=== PATIENT | female | born 1955 | race Caucasian/White ===

== ENCOUNTER → 2018-07-27 09:38 | Outpatient (CLI) | payer OTHER, SELFPAY ==
--- NOTE | 2018-07-27 09:42 | BI_ITS ---
MAMMOGRAPHY - BILATERAL SCREENING REASON FOR EXAM: Female, 63 years old. Routine annual screening examination. PERTINENT HISTORY: Aunt with breast cancer. Remote right stereotactic breast biopsy. Residual right breast discharge. TECHNIQUE: Digital bilateral breast hortensia (3D mammographic acquisition) in the CC and MLO projections. 2-D mediolateral oblique (MLO) and craniocaudad (CC) views of both breasts were obtained. CAD: Full Field Digital Mammography with Computer Added Detection was performed. COMPARISON: Comparison is made with prior examination dated June 20, 2017. FINDINGS: Breast Composition: The breasts are heterogeneously dense, which may obscure small masses. There are no dominant masses or suspicious calcifications. No other significant abnormalities are identified. There has been no significant change since the prior study. BI/SCREENING MAMM (CAD), BILAT IMPRESSION: Stable bilateral screening mammogram. Yearly follow-up mammogram recommended. (A) ASSESSMENT CATEGORY: BIRADS Category 1: Negative. A letter regarding these results will be sent to the patient by the facility within 30 days. Approximately 10% of breast cancers are not detected by mammography. A normal mammogram should not delay biopsy of a clinically suspicious abnormality. [id number] Electronically Signed: Milton Oseguera MD at 11:27 EST Tel [phone], Service support ,
== END ==
PROVIDERS: Family Provider Internal Medicine; PCP Internal Medicine; Referring Provider Obstetrics & Gynecology; Visit Provider Obstetrics & Gynecology
DX: Z12.31 Encounter for screening mammogram for malignant neoplasm of breast (principal)
CPT/HCPCS: 77063; 77067

== ENCOUNTER → 2019-08-06 12:40 | Outpatient (CLI) | payer OTHER, SELFPAY ==
--- NOTE | 2019-08-06 12:42 | BI_ITS ---
MAMMOGRAPHY - BILATERAL SCREENING REASON FOR EXAM: Female, 64 years old. Routine annual screening examination. PERTINENT HISTORY: Aunt with breast cancer. TECHNIQUE: Digital bilateral breast madiha (3D mammographic acquisition) in the CC and MLO projections. 2-D mediolateral oblique (MLO) and craniocaudad (CC) views of both breasts were obtained. CAD: Full Field Digital Mammography with Computer Added Detection was performed. COMPARISON: Comparison is made with prior examination dated July 27, 2018 and August 03, 2016. FINDINGS: Breast Composition: The breasts are heterogeneously dense, which may obscure small masses. There are no dominant masses or suspicious calcifications. A tissue clip marker is seen in the deep slightly medial aspect of the right breast. No other significant abnormalities are identified. There has been no significant change since the prior study. BI/SCREEN MAMM (CAD) W/MADIHA BILAT IMPRESSION: Stable bilateral screening mammogram. Yearly follow-up mammogram recommended. (A) ASSESSMENT CATEGORY: BIRADS Category 2: Benign. A letter regarding these results will be sent to the patient by the facility within 30 days. Approximately 10% of breast cancers are not detected by mammography. A normal mammogram should not delay biopsy of a clinically suspicious abnormality. [id number] Electronically Signed: Milton Oseguera, at 14:28 EST , Service support ,
--- NOTE | 2019-08-06 13:10 | BD_ITS ---
STUDY: DUAL ENERGY X-RAY ABSORPTIOMETRY / DXA REASON FOR EXAM: Female, 64 years old. The patient is postmenopausal. No loss of height. TECHNIQUE: Bone Mineral Density (BMD) measurements of lumbar spine and bilateral hips were obtained. COMPARISON: Comparison is made with prior examination dated August 03, 2016. FINDINGS: Lumbar Spine (L1-L4): g/cm2 (1.142) / T-score (-0.3) / Z-score (1.3) Findings are suggestive of normal bone density with a low fracture risk. Left Femur Total: g/cm2 (0.859) / T-score (-1.2) / Z-score (0.1) Left Femoral Neck: g/cm2 (0.849) / T-score (-1.4) / Z-score (0.2) Right Femur Total: g/cm2 (0.865) / T-score (-1.1) / Z-score (0.1) Right Femoral Neck: g/cm2 (0.729) / T-score (-2.2) / Z-score (-0.7) The T-Scores on the most recent prior examination were: Lumbar Spine (L1-L4): There has been improvement of bone density since the previous examination. Left Femur Total: which represents a worsening of 4.4%. Right Femur Total: which represents a worsening of 2.1%. BD/Dexa Bone Density Study IMPRESSION: The patient is considered osteopenic as outlined below according to World Asif Organization (WHO) criteria with a moderate fracture risk. There has been worsening of bone density since the previous examination. Reference Information: The T-score is the number of standard deviations above or below the standard which is normal for young adults at their peak bone mineral density. The World Health Organization (WHO) interprets the T-scores as follows: Above -1 Normal bone density Between -1 and -2.5 Osteopenia Equal to / or below -2.5 Osteoporosis As a practical clinical guideline, osteopenia may be graded as follows: Mild -1 through -1.5 Moderate -1.6 through -2.0 Severe -2.1 through -2.4 The Z-score is the number of standard deviations above or below age-matched controls. A Z-score of less than -1.5 would be considered abnormal. References: 1. NIH Osteoporosis and Related Bone Diseases http://www.osteo.org 2. International Society for Clinical Densitometry http://www.iscd.org 3. National Osteoporosis Foundation http://www.nof.org Electronically Signed: Milton Oseguera, at 11:06 EST , Service support ,
== END ==
PROVIDERS: Family Provider Internal Medicine; PCP Internal Medicine; Referring Provider Obstetrics & Gynecology; Visit Provider Obstetrics & Gynecology
DX: Z12.31 Encounter for screening mammogram for malignant neoplasm of breast (principal); Z80.3 Family history of malignant neoplasm of breast; Z78.0 Asymptomatic menopausal state
CPT/HCPCS: 77063; 77067; 77080

== ENCOUNTER → 2020-08-31 07:55 | Outpatient (CLI) | payer OTHER, SELFPAY ==
--- NOTE | 2020-08-31 07:57 | BI_ITS ---
MAMMOGRAPHY - BILATERAL SCREENING REASON FOR EXAM: Female, 65 years old. Routine annual screening examination. PERTINENT HISTORY: Aunt with breast cancer. Occasional bilateral nipple tenderness. Prior right stereotactic breast biopsy. TECHNIQUE: Digital bilateral breast madiha (3D mammographic acquisition) in the CC and MLO projections. 2-D mediolateral oblique (MLO) and craniocaudad (CC) views of both breasts were obtained. CAD: Full Field Digital Mammography with Computer Added Detection was performed. COMPARISON: Comparison is made with prior study dated 08/06/2019 and 07/27/2018. FINDINGS: Breast Composition: The breasts are heterogeneously dense, which may obscure small masses. There are no dominant masses or suspicious calcifications. A tissue clip marker is once again seen in the deep slightly medial aspect of the No other significant abnormalities are identified. There has been no significant change since the prior study. BI/SCREEN MAMM (CAD) W/MADIHA BILAT IMPRESSION: Stable bilateral screening mammogram. Yearly follow-up mammogram recommended. (A) ASSESSMENT CATEGORY: BIRADS Category 2: Benign. A letter regarding these results will be sent to the patient by the facility within 30 days. Approximately 10% of breast cancers are not detected by mammography. A normal mammogram should not delay biopsy of a clinically suspicious abnormality. [id number] Electronically Signed: Milton Oseguera, at 10:17 EST , Service support ,
== END ==
PROVIDERS: PCP Internal Medicine; Referring Provider Student in an Organized Health Care Education/Training Program; Visit Provider Student in an Organized Health Care Education/Training Program
DX: Z12.31 Encounter for screening mammogram for malignant neoplasm of breast (principal)
CPT/HCPCS: 77063; 77067

== ENCOUNTER → 2021-06-14 13:39 | Outpatient (CLI) | payer OTHER, SELFPAY ==
[2021-06-14 14:01] LABS: CREATININE FINGERSTICK 0.7 mg/dL (0.55-1.02); EGFR FINGERSTICK > 60.0000 mL/min (>60)
--- NOTE | 2021-06-14 14:06 | CT_ITS ---
STUDY: CT ABDOMEN AND PELVIS WITH CONTRAST REASON FOR EXAM: Female, 66 years old. ABD PAIN -- APPENDICITIS VS DIVERTICULITIS VS KIDNEY STONE RADIATION DOSAGE (If Supplied By Facility): CTDIvol = ( 11.79 ) mGy, DLP = ( 506.54 ) mGycm TECHNIQUE: Transaxial images were obtained from the dome of the diaphragm to the symphysis pubis without oral contrast. 100ML OF ISOVUE 300 was administered. Sagittal and coronal images were reconstructed. Individualized dose optimization techniques were used for this CT. COMPARISON: None. FINDINGS: 7.5 mm noncalcified nodule seen along the anterior aspect of the right middle lobe as seen on axial image #1. Mild increased markings in the anterior medial aspect of the left lower lobe suggestive of scarring. Focal scarring is also seen along the anterior aspect of the right lung. The visualized portions of the heart are within normal limits. Multiple small scattered cysts are seen in both lobes of the liver. The largest cyst measures 2.4 cm x 0.9 cm and is in the inferior aspect of the right lobe. Normal gallbladder and extrahepatic biliary system. Normal spleen. Normal pancreas. Normal bilateral adrenal glands. Normal right kidney. Normal left kidney. Normal visualized stomach. Normal small intestine. There are scattered colonic diverticula consistent with diverticulosis. The appendix is visualized and appears normal. Normal abdominal aorta. Normal inferior vena cava. Normal retroperitoneum. Normal urinary bladder. There is heterogeneous enlargement of the uterus. There is a 4 cm x 4.8 cm well-defined solid nodule in the region of the fundal portion of uterus suggestive of a fibroid uterus with increased vascularity. Correlation with a pelvic sonogram is recommended. There is a small umbilical hernia containing fat. Dextroscoliosis. CT/Abdomen/Pelvis WITH Contrast IMPRESSION: Findings suggestive of enlarged fibroid uterus with increased vascularity to the uterus. Multiple scattered hepatic cysts. Electronically Signed: Milton Oseguera MD at 14:23 EDT , Service support ,
== END ==
PROVIDERS: PCP Internal Medicine; Referring Provider Nurse Practitioner; Visit Provider Nurse Practitioner
DX: K76.89 Other specified diseases of liver (principal); R10.9 Unspecified abdominal pain
CPT/HCPCS: 74177; Q9967

== ENCOUNTER → 2021-09-07 13:51 | Outpatient (CLI) | payer OTHER, SELFPAY ==
--- NOTE | 2021-09-07 13:53 | BI_ITS ---
MAMMOGRAPHY - BILATERAL SCREENING REASON FOR EXAM: Female, 66 years old. Routine annual screening examination. PERTINENT HISTORY: Aunt with breast cancer. Prior right stereotactic breast biopsy. TECHNIQUE: Digital bilateral breast madiha (3D mammographic acquisition) in the CC and MLO projections. 2-D mediolateral oblique (MLO) and craniocaudad (CC) views of both breasts were obtained. CAD: Full Field Digital Mammography with Computer Added Detection was performed. COMPARISON: Comparison is made with prior study dated 08/31/2020 and 08/06/2019. FINDINGS: Breast Composition: The breasts are heterogeneously dense, which may obscure small masses. There are no dominant masses or suspicious calcifications. A tissue clip marker is seen in the deep central slightly medial aspect of the right breast. No other significant abnormalities are identified. There has been no significant change since the prior study. BI/SCRN MAMM (CAD)W/MADIHA BILAT IMPRESSION: Stable bilateral screening mammogram. Yearly follow-up mammogram recommended. (A) ASSESSMENT CATEGORY: BIRADS Category 2: Benign. A letter regarding these results will be sent to the patient by the facility within 30 days. Approximately 10% of breast cancers are not detected by mammography. A normal mammogram should not delay biopsy of a clinically suspicious abnormality. [id number] Electronically Signed: Milton Oseguera MD at 15:06 EST , Service support ,
--- NOTE | 2021-09-07 14:11 | BD_ITS ---
STUDY: DUAL ENERGY X-RAY ABSORPTIOMETRY / DXA REASON FOR EXAM: Female, 66 years old. [id number]. The patient is postmenopausal. TECHNIQUE: Bone Mineral Density (BMD) measurements of lumbar spine and bilateral hips were obtained. COMPARISON: Comparison is made with prior examination dated 08/06/2019. FINDINGS: Lumbar Spine (L1-L4): g/cm2 (0.957) / T-score (-1.3) / Z-score (0.8) Findings are suggestive of osteopenia with a low fracture risk. Left Femur Total: g/cm2 (0.789) / T-score (-1.3) / Z-score (0.2) Left Femoral Neck: g/cm2 (0.663) / T-score (-1.7) / Z-score (0.0) Right Femur Total: g/cm2 (0.791) / T-score (-1.2) / Z-score (0.2) Right Femoral Neck: g/cm2 (0.621) / T-score (-2.1) / Z-score (-0.3) The T-Scores on the most recent prior examination were: Lumbar Spine (L1-L4): There has been worsening of bone density since the previous examination. Left Femur Total: which represents a worsening of 1%. Right Femur Total: which represents a worsening of 1.4%. BD/Dexa Bone Density Study IMPRESSION: The patient is considered osteopenic as outlined below according to World Asif Organization (WHO) criteria with a moderate fracture risk. There has been worsening of bone density since the previous examination. Reference Information: The T-score is the number of standard deviations above or below the standard which is normal for young adults at their peak bone mineral density. The World Health Organization (WHO) interprets the T-scores as follows: Above -1 Normal bone density Between -1 and -2.5 Osteopenia Equal to / or below -2.5 Osteoporosis As a practical clinical guideline, osteopenia may be graded as follows: Mild -1 through -1.5 Moderate -1.6 through -2.0 Severe -2.1 through -2.4 The Z-score is the number of standard deviations above or below age-matched controls. A Z-score of less than -1.5 would be considered abnormal. References: 1. NIH Osteoporosis and Related Bone Diseases www osteo.org 2. International Society for Clinical Densitometry www iscd.org 3. National Osteoporosis Foundation www nof.org Electronically Signed: Milton Oseguera MD at 14:24 EST , Service support ,
== END ==
PROVIDERS: PCP Internal Medicine; Referring Provider Student in an Organized Health Care Education/Training Program; Visit Provider Student in an Organized Health Care Education/Training Program
DX: Z13.820 Encounter for screening for osteoporosis (principal); Z78.0 Asymptomatic menopausal state; Z12.31 Encounter for screening mammogram for malignant neoplasm of breast; Z80.3 Family history of malignant neoplasm of breast
CPT/HCPCS: 77063; 77067; 77080

== ENCOUNTER → 2022-09-08 | Outpatient (CLI) | payer OTHER, SELFPAY ==
--- NOTE | 2022-09-08 13:59 | BI_ITS ---
MAMMOGRAPHY - BILATERAL SCREENING REASON FOR EXAM: Female, 67 years old. Routine annual screening examination. PERTINENT HISTORY: Aunt with breast cancer. Remote right stereotactic breast biopsy. TECHNIQUE: Digital bilateral breast madiha (3D mammographic acquisition) in the CC and MLO projections. 2-D mediolateral oblique (MLO) and craniocaudad (CC) views of both breasts were obtained. CAD: Full Field Digital Mammography with Computer Added Detection was performed. COMPARISON: Comparison is made with prior study 09/07/2021 and 08/31/2020. FINDINGS: Breast Composition: The breasts are heterogeneously dense, which may obscure small masses. There are no dominant masses or suspicious calcifications. A tissue clip marker is seen in the deep central slightly medial aspect of the right No other significant abnormalities are identified. There has been no significant change since the prior study. BI/SCRN MAMM (CAD)W/MADIHA BILAT IMPRESSION: Stable bilateral screening mammogram. Yearly follow-up mammogram recommended. (A) ASSESSMENT CATEGORY: BIRADS Category 2: Benign. A letter regarding these results will be sent to the patient by the facility within 30 days. Approximately 10% of breast cancers are not detected by mammography. A normal mammogram should not delay biopsy of a clinically suspicious abnormality. [id number] Electronically Signed: Milton Oseguera MD at 14:43 EST ,
== END | disposition home or self-care (01) ==
LOC: OPBI 13:58
PROVIDERS: PCP Internal Medicine; Referring Provider Internal Medicine; Visit Provider Internal Medicine
DX: Z12.31 Encounter for screening mammogram for malignant neoplasm of breast (principal); Z80.3 Family history of malignant neoplasm of breast
CPT/HCPCS: 77063; 77067

== ENCOUNTER → 2022-11-17 | Outpatient (CLI) | payer OTHER, SELFPAY ==
--- NOTE | 2022-11-17 14:03 | VDLE_ITS ---
Reason For Study: Pain RIGHT LEFT CFV is compressible, spontaneous, phasic, CFV is compressible, spontaneous, phasic, competent and demonstrates normal competent, and demonstrates normal augmentation. augmentation. FV is compressible, spontaneous, phasic, FV is compressible, spontaneous, phasic, competent and demonstrates normal competent and demonstrates normal augmentation. augmentation. POP V is compressible, spontaneous, phasic, POP V is compressible, spontaneous, phasic, competent and demonstrates normal competent and demonstrates normal augmentation. augmentation. T/P Trunk is compressible. T/P Trunk is compressible. PTV is compressible. PTV is compressible. RT PerV is compressible. LT PerV is compressible. SFJ is competent and measures 0.51 x 0.57 cm. SFJ is competent and measures 0.55 x 0.57 cm. GSV proximal thigh measures 0.34 x 0.37 cm. GSV proximal thigh measures 0.44 x 0.46 cm. GSV at knee measures 0.22 x 0.23 cm. GSV above knee is competent. GSV above knee is competent. GSV at knee measures 0.26 x 0.25 cm. GSV below knee is competent. GSV INCOMPETENT throughout for greater than GSV at knee only is INCOMPETENT for greater 0.5 seconds. than 0.5 seconds ASV proximal calf is INCOMPETENT for greater SSV mid calf is INCOMPETENT for greater than than 0.5 seconds and measures 0.13 x 0.15 cm. 0.5 seconds and measures 0.16 x 0.17 cm. SSV at junction is competent and measures Procedure 0.23 x 0.25 cm. This is a venous duplex using B-mode, color flow and spectral Doppler. Exam performed in department. VL/Venous Duplex US - Robbie Extrem Interpretation Summary Deep veins of the bilateral lower extremities are patent and compressible segme ntally. There is no evidence of bilateral lower extremity deep vein thrombosis. The bilateral great saphenous veins appear patent and compressible segmentally. Positive for reflux in the right great saphenous vein and right small saphenous vein Positive for reflux in the left great saphenous vein and left accessory sapheno us vein Ordering Physician: Ngoc Najera Referring Physician: Asya Baum M.D. Performed By: Dana Ocasio RVT
== END | disposition home or self-care (01) ==
PROVIDERS: PCP Internal Medicine; Visit Provider Physician Assistant
DX: I83.93 Asymptomatic varicose veins of bilateral lower extremities (principal)
CPT/HCPCS: 93970

== ENCOUNTER 2023-04-27 09:30 | Outpatient (RCR) | payer OTHER, SELFPAY ==
--- NOTE | 2023-04-13 08:18 | HP.PTEVAL ---
Patient's Visit Information Visit Information Visit Information: SHERIDAN HENSLEY is a 68 year old F referred to Physical Therapy by Dr. Asya Baum DO with a diagnosis of R SI joint pain. Date of Evaluation: 04/11/23 Physical Therapist: Kolton King DPT Visit Plan Frequency: 2x /Week Duration: 4 Weeks Plan: Start with core stability exercises, hip strengthening. Add in hip flexor stretching. May use US if need to SI joint pain. Subjective Subjective: Pt. is here today for her initial evaluation with diagnosis of R sided SI joint pain. Pt. reports having increased pain since carrying heavy boxes up her stairs a few months ago. She had some relief with chiropractic, but is still having some issues currently. Pt. reports pain on R sided SI joint pain. Pt. denies N/T in either LE. Pt. reports frequent pain at the R side of her SI joint. Pt. has increased pain with stairs and with getting up and down. Walking is better. Bending is worse. Pt. has not tried any exercises at this point in time. Pt. is hopeful to reduce symptoms in order to complete all daily activities and recreactional activities without limitations. Pain L side of SI joint: Pain Intensity (Out of 10): 2 Pain Intensity Range: 0 and 5 Objective Objective: POSTURE: Pt. has has marked scoliosis, lacks TKE on L side with marked L knee varus. Pt. as an apparent 1cm leg length discrepancy, not true leg length change. PALPATION: pt. has increased pain at R side SI region, no lumbar spine pain noted. No LE pain noted with palpation. NEURO: normal throughout. ROM: lumbar spine: flexion full motion, ext min/mod loss, SB full motion, rotation full motion Pt. has normal HS length. Pt. does have tight hip flexors bilaterally. MMT: 5/5 strength throughout distal LEs. Pt. has 4+/5 B hip strength, except 4/5 hip abd and glute strength. Core strength: fair. GAIT: pt. ambulates with normal step length, but does have marked L knee varus and scoliosis with trunk correction. Pseudo lateral shift. STAIRS: increased NW during stance phase R side. No issues with B HR used. Special Tests L/S Slump test left side: Negative L/S Slump test right side: Negative L/S Left Straight Leg Raise: Negative L/S Right Straight Leg Raise: Negative L/S Instability PA Test: Negative L/S Prone Instability Test: Positive Lumbar Standing: Flexion - Mechanical Response: No effect Lumbar Standing: Flexion - Symptoms During Testing: No effect Lumbar Standing: Flexion - Symptoms After Testing: No effect Lumbar Standing: Extension - Mechanical Response: No effect Lumbar Standing: Extension - Symptoms During Testing: No effect Lumbar Standing: Extension - Symptoms After Testing: No effect Lumbar Standing: Right Side Glides - Mechanical Response: No effect Lumbar Standing: Right Side Th[place]morton - Symptoms During Testing: No effect Lumbar Standing: Right Side [place] - Symptoms After Testing: No effect Lumbar Standing: Left Side [place] - Mechanical Response: No effect Lumbar Standing: Left Side [place] - Symptoms During Testing: No effect Lumbar Standing: Left Side [place] - Symptoms After Testing: No effect Balance/Special Test Scores Oswestry Low Back Score: 12 Goals Goal 1:: LTG: Pt. to be I with HEP without increase in symptoms. Goal Time Frame: 4-6 Weeks Goal 2:: STG: Pt. to be able to negotiate 1 flight of steps without increase in symptoms. Goal Time Frame: 2-4 Weeks Goal 3:: LTG: pt. to have 5/5 core and hip strength to increase pelvic stability. Goal 4:: LTG: pt. to have negative reva test indicating improved hip flexor length. Goal Time Frame: 4-6 Weeks Goal 5:: LTG: pt. to be able walk without increase in symptoms. Goal Time Frame: 4-6 Weeks Rehabilitation Potential Physical Therapy Diagnosis: Pt. has signs and symptoms consistent with R sided SI joint pain. Pt. has increased pain with proloned standing, stairs and getting up and down from sitting. She has some core and hip weakness as well as hip flexor tightness. I would like to work on these above issues in order to increase proper pelvic positioning and progress core stability. Rehabilitation Potential: Good Anticipated Interventions Patient/Client Instruction: Educate patient on: Condition, Plan of Care, Risk Factors and Benefits of Fitness Program For the Purpose of:: To facilitate caregiver knowledge, To improve self management, To prevent re-injury, To improve ability to perform tasks related to life management and To improve tolerance to ADL's Therapeutic Exercise to Include: Strength training, Power training, Postural training, Flexibilty training, Passive ROM, Active ROM, Dynamic Lumbar Stabilization and Marti Exercises For the Purpose of:: To decrease pain, To increase ROM, To improve nutrient delivery to tissue, To increase oxygenation perfusion, To improve muscle performance and motor function, To improve ability to perform ADL's, To improve health of tissue, To decrease soft tissue restriction and To increase flexibility/ROM Manual Therapy Techniques to Include: Mobilization For the Purpose of:: To decrease pain, To increase ROM, To improve nutrient delivery to tissue, To increase oxygenation perfusion and To improve muscle performance and motor function Ultrasound (thermal/non thermal): Yes For the Purpose of:: To decrease pain, To decrease swelling/inflammation, To increase ROM and To improve nutrient delivery to tissue Text: Thank you for the opportunity to evaluate your patient. For Medicare and Medicare HMO plans, please review the plan of care and approve it. It will need to be FAXED BACK to us at [phone] for Medicare purposes. For Medicare only, by signing this I certify the plan of care. Please let me know if there are questions or concerns regarding this plan of care. Physician Signature: Date:
== END 2023-04-27 19:00 | disposition home or self-care (01) ==
LOC: PT 09:30
PROVIDERS: PCP Internal Medicine; Referring Provider Internal Medicine; Visit Provider Internal Medicine
DX: M53.3 Sacrococcygeal disorders, not elsewhere classified (principal)
CPT/HCPCS: 97035; 97110; 97161

== ENCOUNTER → 2023-10-03 | Outpatient (CLI) | payer OTHER, SELFPAY ==
--- NOTE | 2023-10-03 13:25 | BI_ITS ---
MAMMOGRAPHY - BILATERAL SCREENING REASON FOR EXAM: Female, 68 years old. Routine annual screening examination. PERTINENT HISTORY: Aunt with breast cancer. Remote right stereotactic breast biopsy. TECHNIQUE: Digital bilateral breast madiha (3D mammographic acquisition) in the CC and MLO projections. 2-D mediolateral oblique (MLO) and craniocaudad (CC) views of both breasts were obtained. CAD: Full Field Digital Mammography with Computer Added Detection was performed. COMPARISON: Comparison is made with prior study dated September 08, 2022 and September 07, 2021. FINDINGS: Breast Composition: The breasts are heterogeneously dense, which may obscure small masses. There are no dominant masses or suspicious calcifications. A tissue clip marker is once again seen in the deep central slightly medial aspect of the right breast. No other significant abnormalities are identified. There has been no significant change since the prior study. BI/SCRN MAMM (CAD)W/MADIHA BILAT IMPRESSION: Stable bilateral screening mammogram. Yearly follow-up mammogram recommended. (A) ASSESSMENT CATEGORY: BIRADS Category 2: Benign. A letter regarding these results will be sent to the patient by the facility within 30 days. Approximately 10% of breast cancers are not detected by mammography. A normal mammogram should not delay biopsy of a clinically suspicious abnormality. [id number] Electronically Signed: Milton Oseguera MD at 14:29 EST ,
--- NOTE | 2023-10-03 13:29 | BD_ITS ---
STUDY: DUAL ENERGY X-RAY ABSORPTIOMETRY / DXA REASON FOR EXAM: Female, 68 years old. [id number] TECHNIQUE: Bone Mineral Density (BMD) measurements of lumbar spine and bilateral hips were obtained. COMPARISON: Comparison is made with prior study dated September 07, 2021. FINDINGS: Lumbar Spine (L1-L4): g/cm2 (0.918) / T-score (-1.7) / Z-score (0.6) Findings are suggestive of osteopenia with a moderate fracture risk. Left Femur Total: g/cm2 (0.753) / T-score (-1.6) / Z-score (0.0) Left Femoral Neck: g/cm2 (0.592) / T-score (-2.3) / Z-score (-0.5) Right Femur Total: g/cm2 (0.715) / T-score (-1.9) / Z-score (-0.3) Right Femoral Neck: g/cm2 (0.554) / T-score (-2.7) / Z-score (-0.8) The T-Scores on the most recent prior examination were: Lumbar Spine (L1-L4): There has been worsening of bone density since the previous examination. Left Femur Total: which represents a worsening of 4.6%. Right Femur Total: which represents a worsening of 9.6%. BD/Dexa Bone Density Study IMPRESSION: The patient is considered osteoporotic as outlined below according to World Asif Organization (WHO) criteria with a high fracture risk. There has been worsening of bone density since the previous examination. Reference Information: The T-score is the number of standard deviations above or below the standard which is normal for young adults at their peak bone mineral density. The World Health Organization (WHO) interprets the T-scores as follows: Above -1 Normal bone density Between -1 and -2.5 Osteopenia Equal to / or below -2.5 Osteoporosis As a practical clinical guideline, osteopenia may be graded as follows: Mild -1 through -1.5 Moderate -1.6 through -2.0 Severe -2.1 through -2.4 The Z-score is the number of standard deviations above or below age-matched controls. A Z-score of less than -1.5 would be considered abnormal. References: 1. NIH Osteoporosis and Related Bone Diseases www osteo.org 2. International Society for Clinical Densitometry www iscd.org 3. National Osteoporosis Foundation www nof.org Electronically Signed: Milton Oseguera MD at 14:02 EST ,
== END | disposition home or self-care (01) ==
LOC: OPBD 13:19
PROVIDERS: PCP Internal Medicine; Referring Provider Internal Medicine; Visit Provider Internal Medicine
DX: M81.0 Age-related osteoporosis without current pathological fracture (principal); Z78.0 Asymptomatic menopausal state; Z12.31 Encounter for screening mammogram for malignant neoplasm of breast
CPT/HCPCS: 77063; 77067; 77080

== ENCOUNTER → 2024-01-09 | Outpatient (CLI) | payer OTHER, SELFPAY ==
--- NOTE | 2024-01-09 08:01 | CT_ITS ---
STUDY: CT CHEST WITH CONTRAST REASON FOR EXAM: Female, 68 years old. Lung nodule and gt;8mm -- lung nodule and gt;8mm RADIATION DOSAGE (If Supplied By Facility): CTDIvol = ( 8.94 ) mGy, DLP = ( 167.08 ) mGycm TECHNIQUE: Transaxial imaging was performed following intravenous administration of IV 100mL Isovue-300. Multiplanar coronal and sagittal images were reformatted. Individualized dose optimization techniques were used for this CT. COMPARISON: Comparison is made with prior CT scan of the abdomen and pelvis dated June 14, 2021. FINDINGS: CHEST Minimal heterogeneous change seen in the lower pole of the left thyroid gland. Focal calcification in the right lobe of the thyroid. There are multiple less than 1 cm pleural-based nodules in both hemithoraces. The largest is in the posterior lateral aspect of the right lower lobe and measures 5.5 mm. Scarring in the anterior lingular segment of the left upper lobe. Scarring at the lung apices. There is no demonstrated pleural abnormality. Normal heart and pericardium. No coronary artery calcification is seen. Normal mediastinum. Normal hilar regions. Normal unenhanced pulmonary arteries. Normal aorta arch and descending thoracic aorta. There are multi-level degenerative changes of the thoracic spine. Dextroscoliosis. 9.2 mm cyst is seen in the anterior aspect of the right lobe of the liver. CT/Chest WITH Contrast IMPRESSION: Multiple small pleural-based nodules are seen in both hemithoraces. 12 month follow-up recommended. Electronically Signed: Milton Oseguera MD at 14:58 EDT ,
[2024-01-09 08:32] LABS: CREATININE FINGERSTICK < 1.0 mg/dL (0.55-1.02); EGFR FINGERSTICK > 60.0000 mL/min (>60)
== END | disposition home or self-care (01) ==
LOC: CT 07:59
PROVIDERS: PCP Internal Medicine; Referring Provider Internal Medicine; Visit Provider Internal Medicine
DX: R91.1 Solitary pulmonary nodule (principal)
CPT/HCPCS: 71260; Q9967

== ENCOUNTER → 2024-10-29 | Outpatient (CLI) | payer MEDICARE, OTHER, SELFPAY ==
--- NOTE | 2024-10-29 10:11 | BI_ITS ---
PROCEDURE: SCRN MAMM (CAD)W/MADIHA BILAT REASON FOR EXAM: F, Age 69 y/o, presents for annual screening mammogram. Family history of breast cancer in a maternal aunt in her 80s and in a cousin in her 50s. TECHNIQUE: Bilateral screening digital breast tomosynthesis with 2D and 3D images. Computer aided detection. COMPARISON: 10/03/2023 FINDINGS: The breasts are heterogeneously dense which may obscure small masses. The mammogram demonstrates that the patient has dense breasts. Supplemental screening with whole breast ultrasound may be considered for further evaluation. No suspicious masses, areas of developing architectural distortion, or suspicious calcifications. BI/SCRN MAMM (CAD)W/MADIHA BILAT IMPRESSION: There is no mammographic evidence of malignancy in either breast. BI-RADS 1: NEGATIVE. RECOMMEND ANNUAL MAMMOGRAPHIC SCREENING. Follow-up code: Routine Follow-up The patient will be notified of the results by letter. Reading Location: [id number]
== END | disposition home or self-care (01) ==
PROVIDERS: PCP Internal Medicine; Referring Provider Internal Medicine; Visit Provider Internal Medicine
DX: Z12.31 Encounter for screening mammogram for malignant neoplasm of breast (principal)
CPT/HCPCS: 77063; 77067

== ENCOUNTER → 2024-12-26 | Outpatient (CLI) | payer MEDICARE, OTHER, SELFPAY ==
[2024-12-26 11:46] LABS: Absolute Lymphocyte Count 1.28 X10^3/uL (0.83-4.51); Absolute Neutrophil Count 5.5 X10^3/uL (2.0-7.7); Basophil# 0.02 X10^3/uL; Basophil% 0.3 % (0-1); Eosinophil# 0.11 X10^3/uL; Eosinophils% 1.4 % (0-5); Hematocrit 41.4 % (37-47); Hemoglobin 13.7 g/dL (12.0-15.0); Lymphocyte # 1.28 X10^3/ul (0.83-4.51); Lymphocyte % 16.3 % (19-41); Mean Corp Hgb Conc 33.1 g/dL (32-36); Mean Corpuscular Volume 90.8 fL (81-99); Mean Platelet Vol. 9.8 fl (6.2-12.0); Monocyte# 0.87 X10^3/uL; Monocyte% 11.1 % (0-10); NRBC Flagged by Analyzer 0 % (0-5); Neutrophil # 5.54 X10^3/uL (2.7-7.7); Neutrophil % 70.5 % (47-70); Platelet Count 331 K/mm3 (150-450); RBC Distribution Width CV 13.9 % (11.6-14.6); RBC Distribution Width SD 46.7 fl (35.1-43.9); Red Blood Count 4.56 M/mm3 (4.2-5.4); White Blood Count 7.9 K/mm3 (4.4-11.0)
[2024-12-26 12:09] LABS: Erythrocyte Sedimentation Rate 2 mm/hr (0-30)
[2024-12-26 12:19] LABS: Anion Gap 8 (5-15); BUN 16 mg/dL (4-19); BUN/Creat Ratio 23.2 RATIO (10-20); Calcium,Total 9.8 mg/dL (7.6-11.0); Carbon Dioxide 25.9 mmol/L (21.0-32.0); Chloride 104 mmol/L (98-108); Creatinine, Serum 0.67 mg/dL (0.70-1.20); EST Glomerular Filtration Rate 93 (>60); Glucose 86 mg/dL (70-99); Potassium 3.9 mmol/L (3.3-5.1); Sodium Level 138 mmol/L (133-145)
[2024-12-26 12:26] LABS: CRP < 3.00 mg/L (0.0-3.0)
--- NOTE | 2024-12-26 13:39 | CT_ITS ---
PROCEDURE: ABDOMEN/PELVIS WITH CONTRAST 12/26/2024 REASON FOR EXAM: RLQ ABD PAIN TECHNIQUE: Abdomen and pelvis CT with intravenous contrast. Coronal and Sagittal reconstruction series were provided. Contiguous axial scans of 3.75 mm slice thicknesses. Sagittal and coronal reconstruction images were obtained. One or more dose reduction techniques were used (e.g., automated exposure control, adjustment of mA and/or kv according to patient size, use of iterative reconstruction technique). PATIENT PREPARATION: Per protocol ORAL CONTRAST TYPE: Not given. CONTRAST: Isovue-300 VOLUME: 95 mL RADIATION DOSE SUMMARY: CTDlvol: 26.94 mGy DLP: 497.97 mGycm COMPARISON: CT abdomen and pelvis dated 06/14/2021. FINDINGS: Lung bases: A 0.7 cm subpleural nodule, left lower lobe posteromedially, axial image 1. A 0.96 x 0.4 cm subpleural nodule in the right lung base medially, axial image 1. A point 5 cm noncalcified faintly visualized micronodule in the right lung base medially, axial image 1. A 0.6 cm subpleural noncalcified micronodule, right lower lobe medially, axial image 4. Liver: Mild hepatomegaly. Liver measures 18.3 cm sagittally. Multiple well- circumscribed masses of hypoattenuation in the right and left hepatic lobes. The largest measures 3.0 x 1.4 cm, axial image 53 and the smallest measures proximally 0.3 cm, axial image 33. Gallbladder: Unremarkable. Spleen: Normal in size and attenuation. No masses are identified. Pancreas: Unremarkable. Adrenals: No abnormal thickening or masses. Kidneys: Subcentimeter cysts in the right kidney, largest measuring 0.9 cm. Bladder: Unremarkable. Reproductive Organs: Surgically absent uterus. Bowel: Large amount of fecal content in the colon. Bowel otherwise unremarkable. Appendix: Unremarkable. Lymph nodes: No pathologic adenopathy. Vasculature: No aneurysms. Phleboliths in the pelvis. Peritoneum / Retroperitoneum: No free air. No masses. No ascites. Anterior abdominal wall: Small bilateral fat containing inguinal hernias. Bones: Marked dextroscoliosis of the thoracolumbar spine. Exaggerated kyphosis at the T11-T12 level. 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 CT/Abdomen/Pelvis WITH Contrast IMPRESSION: 1. Multiple small noncalcified micro nodules in the bilateral lower lobes. Co nsider 3 to 6 month follow-up low-dose CT for surveillance. 2. Mild hepatomegaly. 3. Multiple hepatic cysts. 4. Subcentimeter cyst in the right kidney. 5. Status post cholecystectomy. 6. Small bilateral fat containing inguinal hernias. 7. Marked dextro kyphoscoliosis.. 8. Other nonacute findings detailed above. Reading Location: [place] [id number]
== END | disposition home or self-care (01) ==
PROVIDERS: PCP Internal Medicine; Referring Provider Internal Medicine; Visit Provider Internal Medicine
DX: R10.31 Right lower quadrant pain (principal)
CPT/HCPCS: 36415; 74177; 80048; 85025; 85652; 86140; Q9967

== ENCOUNTER → 2025-09-02 | Outpatient (CLI) | payer MEDICARE, OTHER, SELFPAY ==
--- NOTE | 2025-09-02 13:45 | MRI_ITS ---
PROCEDURE: BRAIN W/WO CONTRAST 09/02/2025 REASON FOR EXAM: DIPLOPIA, RULE OUT STROKE, MASS LESION TECHNIQUE: Procedure Code: MRIBRWW Modality: MR Procedure: BRAIN AND ORBITS W/WO CONTRAST Multiplanar and multisequence images were obtained. CONTRAST: Clariscan VOLUME: 10 mL COMPARISON: None available. FINDINGS: The ocular globes appear normal in contour. Bilateral ocular lens replacements are in normal anatomic location. The optic nerves, optic chiasm, optic tracts, extraocular muscles, orbital fat, and lacrimal glands appear overall symmetric and within normal limits of size and signal. There is no evidence of enhancing mass or abnormal enhancement in the orbits. The pituitary gland is within normal limits of size and contour for age and gender. The pituitary stalk is midline. No acute infarct or hemorrhage.Scattered nonspecific foci of periventricular and subcortical T2/FLAIR white matter hyperintensities in the cerebral hemispheres and left arnel compatible with chronic microvascular ischemic changes. There is no abnormal intracranial enhancement. No extra-axial fluid collection. No significant mass effect or herniation of the brain. The ventricular system and sulci/fissures are within expected limits of size and configuration for the patient's stated age. The intracranial large vessel arterial flow voids are maintained. The mastoid air cells clear. There is scattered paranasal mucosal thickening. 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 The calvarial bone marrow signal is within normal limits. MRI/Brain W/WO Contrast IMPRESSION: 1. No abnormal signal abnormality or enhancement in the orbits. 2. No acute infarct, hemorrhage, or significant mass effect. Reading Location: [id number]
== END | disposition home or self-care (01) ==
LOC: OPMRI 13:05
PROVIDERS: PCP Internal Medicine; Referring Provider Ophthalmology; Visit Provider Ophthalmology
DX: H53.2 Diplopia (principal)
CPT/HCPCS: 70553; A9575